=== PATIENT | female | born 1995 | race African-American/Black ===

== ENCOUNTER 2017-04-12 16:14 | Emergency (ER) | payer BC ==
[~2017-04-12] VITALS: Ht 167.6 cm; Wt 70.8 kg
[2017-04-12] MEDS ORDERED: ALBU83IN INH (16:23)
[2017-04-12] MEDS ORDERED: ONDANSETRON 4 MG ORAL DISINTEGRATING TAB (S0181) PO ONE (17:00)
[2017-04-12] MEDS ORDERED: ZOFR4TAB3 PO (18:16)
[2017-04-12 18:21] VITALS: BP 141/79
== END 2017-04-12 18:32 | disposition home or self-care (01) ==
LOC: M ED 17:10
DX: A08.4 Viral intestinal infection, unspecified (principal); R11.2 Nausea with vomiting, unspecified; F17.200 Nicotine dependence, unspecified, uncomplicated

== ENCOUNTER 2018-03-29 06:33 | Emergency (ER) | payer BC | END 2018-03-29 07:27 | disposition home or self-care (01) | LOC: M ED 06:33 | DX: J02.9 Acute pharyngitis, unspecified (principal); J45.909 Unspecified asthma, uncomplicated; F17.210 Nicotine dependence, cigarettes, uncomplicated | CPT/HCPCS: 87880 ==

== ENCOUNTER 2019-01-12 07:29 | Emergency (ER) | payer BC ==
[~2019-01-12] VITALS: Ht 167.6 cm; Wt 90.9 kg
[~2019-01-12 07:29] MED LIST: AFRI0.0511; ALBU83IN INH; AMOX875T PO; BENZ200C70 PO; ZOFR4TAB14 PO
[2019-01-12 07:30] VITALS: BP 129/70
--- NOTE | 2019-01-12 08:39 | REP ---
Right knee series: Five views. History: Trauma medially. Findings: Five views right knee show clothing artifact over the distal thigh. No fractures seen. No evidence of joint effusion. Impression: Negative right knee radiographs. Electronically Signed by Kevin Singer MD 01/12/2019 08:30 A
[2019-01-12] MEDS ORDERED: NAPR-885 PO (08:45)
== END 2019-01-12 08:55 | disposition home or self-care (01) ==
LOC: M ED 07:29
DX: S83.411A Sprain of medial collateral ligament of right knee, initial encounter (principal); X50.1XXA Overexertion from prolonged static or awkward postures, initial encounter; Y92.099 Unspecified place in other non-institutional residence as the place of occurrence of the external cause; Y93.9 Activity, unspecified; Y99.9 Unspecified external cause status; Z79.899 Other long term (current) drug therapy

== ENCOUNTER → 2019-11-01 | Outpatient (CLI) | payer BC ==
[~2019-11-01] MED LIST changes: +NAPR-885 PO; +PROHANCE 279.3MG/ML 15ML VIAL (A9576) As Ordered ONE; +PROHANCE 279.3MG/ML 5ML VIAL (A9576) As Ordered ONE
--- NOTE | 2019-11-01 16:24 | REPVR ---
PROCEDURE INFORMATION: Exam: MR Head Without and With Contrast; Internal Auditory Canals Exam date and time: 11/01/2019 3:14 PM Age: 23 years old Clinical indication: Other: Hearing loss; Additional info: Sens hearing loss TECHNIQUE: Imaging protocol: MR of the head without and with intravenous contrast. Exam focused on the internal auditory canals. 3D rendering: MIP and/or 3D reconstructed images were created by the technologist. Contrast material: PROHANCE; Contrast volume: 16 ml; Contrast route: IV; COMPARISON: No relevant prior studies available. FINDINGS: Brain: No lesions are seen in the seventh and eighth nerve complexes or within the cerebellopontine sulci, brainstem or posterior fossa.with gadolinium administration no enhancing schwannoma is seen in the seventh eighth nerve complexes nor throughout the brain parenchyma or leptomeninges. There is no acute cortical infarction, demyelinating lesions, intracranial hemorrhage or mass. Ventricles: No ventriculomegaly. Soft tissues: There is a rounded fat intensity lesion probably representing a lipoma since it is well-circumscribed in the subcutaneous soft tissues of the left face image 1 series 201, frame 3. There appear to be multiple lymph nodes within the posterior triangle series 201 image 1, frame 5,6,18,19. Sinuses: No air-fluid levels in the paranasal sinuses however there is diffuse mild mucoperiosteal thickening. Mastoid air cells: There is probable fluid in the right mastoid air cells. No fluid is seen in the middle ear cavities or left mastoid air cells. Internal auditory canals: Unremarkable. 7th and 8th cranial nerves are unremarkable. No abnormal masses. Orbits: Orbits are unremarkable. Bones/joints: Unremarkable. IMPRESSION: 1. No intracranial lesion is identified to explain the patient's sensorineural hearing loss. 2. Normal appearance of the brain. 3. Some fluid is seen in the right mastoid air cells. 4. There appears to be lymphadenopathy in the posterior triangle bilaterally only partially assessed on the survey images. Electronically signed by: Racquel Matt On 11/01/2019 16:23:58 PM
== END ==
LOC: M RAD 15:09
PROVIDERS: ATTEND Otolaryngology
DX: H90.41 Sensorineural hearing loss, unilateral, right ear, with unrestricted hearing on the contralateral side (principal); R59.0 Localized enlarged lymph nodes
CPT/HCPCS: 70553; A9576

== ENCOUNTER → 2020-11-21 | Outpatient (REF) | payer BC ==
[~2020-11-21] MED LIST changes: -PROHANCE 279.3MG/ML 15ML VIAL (A9576) As Ordered ONE; -PROHANCE 279.3MG/ML 5ML VIAL (A9576) As Ordered ONE
== END ==
LOC: M LAB REF 11:10
PROVIDERS: ATTEND Family Medicine Addiction Medicine
DX: R30.9 Painful micturition, unspecified (principal)

== ENCOUNTER 2022-03-14 23:03 | Emergency (ER) | payer BC ==
[2022-03-15] MEDS ORDERED: HOME MED LIST COMPLETE! XX SCH (00:25)
[2022-03-15 02:02] LABS: HEMOGLOBIN 14.1 g/dl (12.0-15.5); MEAN CORPUSCULAR HEMOGLOBIN 28.7 pg (27.0-33.0); MEAN CORPUSCULAR HGB CONC 32.8 g/dl (32.0-36.5); MEAN CORPUSCULAR VOLUME 87.4 fl (80.0-96.0); PLATELET COUNT, AUTOMATED 463 10^3/uL (150-450); RED BLOOD COUNT 4.92 10^6/uL (4.00-5.40); WHITE BLOOD COUNT 16.8 10^3/uL (4.0-10.0)
[2022-03-15] MEDS ORDERED: ALBU83IN INH (02:09)
[2022-03-15 02:25] LABS: HCG, SERUM QUALITATIVE NEGATIVE (NEGATIVE)
[2022-03-15 02:35] LABS: ACETAMINOPHEN LEVEL < 2.0 UG/ML (10.0-30.0); ALBUMIN 4.1 GM/DL (3.2-5.2); ALT/SGPT 53 U/L (12-78); BILIRUBIN,DIRECT < 0.1 MG/DL (0.0-0.2); BILIRUBIN,TOTAL 0.2 MG/DL (0.2-1.0); BLOOD UREA NITROGEN 10 MG/DL (7-18); CALCIUM LEVEL 8.8 MG/DL (8.5-10.1); CARBON DIOXIDE LEVEL 26 MEQ/L (21-32); CHLORIDE LEVEL 111 MEQ/L (98-107); CREATININE FOR GFR 0.82 MG/DL (0.55-1.30); ETHYL ALCOHOL (ETHANOL) 0.297 % (0.000-0.010); GLOMERULAR FILTRATION RATE > 60.0 (>60); GLUCOSE, FASTING 101 MG/DL (70-100); POTASSIUM SERUM 4.1 MEQ/L (3.5-5.1); SALICYLATE LEVEL < 1.7 MG/DL (5.0-30.0); SODIUM LEVEL 144 MEQ/L (136-145); THYROID STIMULATING HORMONE 0.854 uIU/ML (0.358-3.740); TOTAL PROTEIN 8.1 GM/DL (6.4-8.2)
[2022-03-15 02:44] LABS: AMPHETAMINES LEVEL URINE NEGATIVE (NEGATIVE); BARBITURATES URINE NEGATIVE (NEGATIVE); BENZODIAZEPINES URINE NEGATIVE (NEGATIVE); CANNABINOIDS URINE POSITIVE (NEGATIVE); COCAINE METABOLITE URINE NEGATIVE (NEGATIVE); METHADONE URINE NEGATIVE (NEGATIVE); OPIATES URINE NEGATIVE (NEGATIVE); PHENCYCLIDINE URINE NEGATIVE (NEGATIVE)
[2022-03-15] MEDS ORDERED: LORazepam 2 MG TAB PO STA (03:23)
[2022-03-15 04:29] LABS: RSV AMPLIFICATION NEGATIVE (NEGATIVE)
[2022-03-15 06:44] VITALS: BP 137/69
[2022-03-15] MEDS ORDERED: LORazepam 2 MG TAB PO PRN (08:10)
[2022-03-15] MEDS ORDERED: THIAMINE 100 MG TAB PO SCH (09:00)
[2022-03-15] MEDS ORDERED: MULTIVITAMINS/MINERALS THERAP 1 TAB PO SCH (09:00)
[2022-03-15] MEDS ORDERED: FOLIC ACID 1 MG TAB PO SCH (09:00)
== END 2022-03-15 21:24 | disposition home or self-care (01) ==
LOC: M ED 23:03
DX: F10.929 Alcohol use, unspecified with intoxication, unspecified (principal); R45.851 Suicidal ideations; J45.909 Unspecified asthma, uncomplicated; F17.200 Nicotine dependence, unspecified, uncomplicated; F12.10 Cannabis abuse, uncomplicated

== ENCOUNTER → 2022-11-03 | Outpatient (REF) | payer BC ==
[~2022-11-03] MED LIST changes: +ALBU2.5V10 INH; -ALBU83IN INH
== END ==
LOC: M LAB REF 16:11
PROVIDERS: ATTEND Physician Assistant
DX: Z02.1 Encounter for pre-employment examination (principal)

== ENCOUNTER → 2022-11-06 | Outpatient (CLI) | payer BC | LOC: M LAB 10:18 | PROVIDERS: ATTEND Pediatrics | DX: Z11.7 Encounter for testing for latent tuberculosis infection (principal) ==

== ENCOUNTER → 2022-11-10 | Outpatient (REF) | payer BC | LOC: M LAB REF 12:59 | PROVIDERS: ATTEND Nurse Practitioner Family | DX: Z02.1 Encounter for pre-employment examination (principal) ==

== ENCOUNTER 2023-10-19 02:08 | Emergency (ER) | payer BC ==
[~2023-10-19] VITALS: Ht 170.2 cm; Wt 86.6 kg
[2023-10-19 02:17] VITALS: TEMP 98.8
[2023-10-19 02:18] VITALS: BP 144/79
[2023-10-19 02:23] VITALS: O2SAT 97
== END 2023-10-19 03:38 | disposition left against medical advice (07) ==
LOC: M ED 02:08
DX: Z53.21 Procedure and treatment not carried out due to patient leaving prior to being seen by health care provider (principal)

== ENCOUNTER 2023-11-10 23:33 | Emergency (ER) | payer BC ==
[2023-11-10] MEDS ORDERED: HALOPERIDOL 5MG/ML 1ML VIAL IM ONE (23:40)
[2023-11-10] MEDS ORDERED: diphenhydrAMINE 50MG/ML VIAL IM ONE (23:40)
[2023-11-10] MEDS ORDERED: LORazepam 2 MG/ML 1ML VIAL IM ONE (23:40)
[2023-11-11] MEDS ORDERED: MED REC CURRENTLY UNOBTAINABLE XX SCH (01:10)
[2023-11-11 01:57] LABS: BARBITURATES URINE NEGATIVE (NEGATIVE); COCAINE METABOLITE URINE NEGATIVE (NEGATIVE); METHADONE URINE NEGATIVE (NEGATIVE); OPIATES URINE NEGATIVE (NEGATIVE); PHENCYCLIDINE URINE NEGATIVE (NEGATIVE)
[2023-11-11 01:58] LABS: HEMATOCRIT 39.9 % (36.0-47.0); HEMOGLOBIN 13.2 g/dl (12.0-15.5); MEAN CORPUSCULAR HEMOGLOBIN 29.3 pg (27.0-33.0); MEAN CORPUSCULAR HGB CONC 33.1 g/dl (32.0-36.5); MEAN CORPUSCULAR VOLUME 88.7 fl (80.0-96.0); PLATELET COUNT, AUTOMATED 389 10^3/uL (150-450); WHITE BLOOD COUNT 12.7 10^3/uL (4.0-10.0)
[2023-11-11 01:58] LABS: AMPHETAMINES LEVEL URINE NEGATIVE (NEGATIVE); BENZODIAZEPINES URINE NEGATIVE (NEGATIVE)
[2023-11-11 02:00] LABS: CANNABINOIDS URINE POSITIVE (NEGATIVE)
[2023-11-11 02:00] LABS: ETHYL ALCOHOL (ETHANOL) 0.248 % (0.000-0.010)
[2023-11-11 02:02] LABS: ALBUMIN 4.1 G/DL (3.2-5.2); ALKALINE PHOSPHATASE 73 U/L (46-116); ALT/SGPT 33 U/L (7.0-40); AST/SGOT 36 U/L (<34); BILIRUBIN,DIRECT < 0.1 MG/DL (<0.4); BILIRUBIN,TOTAL 0.2 MG/DL (0.3-1.2); BLOOD UREA NITROGEN 8 MG/DL (9-23); CALCIUM LEVEL 8.7 MG/DL (8.5-10.1); CARBON DIOXIDE LEVEL 24 MMOL/L (20-31); CHLORIDE LEVEL 110 MMOL/L (98-107); CREATININE FOR GFR 0.66 MG/DL (0.55-1.30); GLOMERULAR FILTRATION RATE > 60.0 (>60); GLUCOSE, FASTING 106 MG/DL (60-100); SALICYLATE LEVEL < 3.0 MG/DL (<30); SODIUM LEVEL 142 MMOL/L (136-145); TOTAL PROTEIN 7.3 G/DL (5.7-8.2)
[2023-11-11 02:04] LABS: THYROID STIMULATING HORMONE 1.062 uIU/ML (0.55-4.78)
[2023-11-11 02:05] LABS: CPK CREATINE PHOSPHOKINASE 380 U/L (34-145)
[2023-11-11 06:00] VITALS: TEMP 98.7
[2023-11-11 07:09] VITALS: BP 140/71; O2SAT 99
== END 2023-11-11 07:19 | disposition home or self-care (01) ==
LOC: EDBD 23:33 → M ED 23:33
DX: F10.159 Alcohol abuse with alcohol-induced psychotic disorder, unspecified (principal); Y90.8 Blood alcohol level of 240 mg/100 ml or more
CPT/HCPCS: 80048; 80076; 80143; 80307; 82077; 82550; 84443; 85027; 87635; 96372; 99285; J1200; J1630; J2060

== ENCOUNTER 2024-03-07 09:46 | Emergency (ER) | payer BC, OTHER ==
[~2024-03-07] VITALS: Ht 167.6 cm; Wt 87.6 kg
[2024-03-07] MEDS ORDERED: NALT50TA4 PO (09:58)
[2024-03-07] MEDS ORDERED: SERT200C PO (09:58)
[2024-03-07] MEDS ORDERED: BUPR75TA5 PO (09:58)
[2024-03-07 11:32] LABS: BASO % 0.6 % (0.0-1.0); EOS # 0.2 10^3/uL (0.0-0.5); EOS % 3.2 % (0.0-3.0); HEMATOCRIT 38.6 % (36.0-47.0); HEMOGLOBIN 12.7 g/dl (12.0-15.5); LYMPH # 2.3 10^3/uL (1.5-5.0); LYMPH % 32.3 % (24.0-44.0); MEAN CORPUSCULAR HEMOGLOBIN 29.1 pg (27.0-33.0); MEAN CORPUSCULAR HGB CONC 32.9 g/dl (32.0-36.5); MEAN CORPUSCULAR VOLUME 88.3 fl (80.0-96.0); MONO # 0.5 10^3/uL (0.0-0.8); MONO % 6.6 % (2.0-8.0); NEUTROPHILS % 56.7 % (36.0-66.0); PLATELET COUNT, AUTOMATED 341 10^3/uL (150-450); RED BLOOD COUNT 4.37 10^6/uL (4.00-5.40); WHITE BLOOD COUNT 7.1 10^3/uL (4.0-10.0)
[2024-03-07 11:44] LABS: INR 1.01
[2024-03-07 11:56] LABS: LIPASE 27 U/L (12-53)
[2024-03-07 11:57] LABS: C REACTIVE PROTEIN QUANTITATIV < 0.40 MG/DL (<1.0)
[2024-03-07 11:59] LABS: ALBUMIN 3.6 G/DL (3.2-5.2); ALKALINE PHOSPHATASE 68 U/L (46-116); ALT/SGPT 21 U/L (7.0-40); AST/SGOT 19 U/L (<34); BILIRUBIN,DIRECT < 0.1 MG/DL (<0.4); BILIRUBIN,TOTAL 0.3 MG/DL (0.3-1.2); BLOOD UREA NITROGEN 8 MG/DL (9-23); CALCIUM LEVEL 8.8 MG/DL (8.5-10.1); CARBON DIOXIDE LEVEL 27 MMOL/L (20-31); CHLORIDE LEVEL 106 MMOL/L (98-107); CREATININE FOR GFR 0.57 MG/DL (0.55-1.30); GLOMERULAR FILTRATION RATE > 60.0 (>60); GLUCOSE, FASTING 78 MG/DL (60-100); POTASSIUM SERUM 4.6 MMOL/L (3.5-5.1); SODIUM LEVEL 138 MMOL/L (136-145); TOTAL PROTEIN 6.8 G/DL (5.7-8.2)
[2024-03-07 13:16] VITALS: BP 139/91; TEMP 97.2; O2SAT 97
[2024-03-07] MEDS ORDERED: FLON1SPR NARES (13:42)
[2024-03-07] MEDS ORDERED: HOME MED LIST COMPLETE! XX SCH (13:45)
== END 2024-03-07 13:34 | disposition home or self-care (01) ==
LOC: M ED 09:46
DX: K92.2 Gastrointestinal hemorrhage, unspecified (principal); F17.200 Nicotine dependence, unspecified, uncomplicated; F12.10 Cannabis abuse, uncomplicated; F10.10 Alcohol abuse, uncomplicated; Z79.51 Long term (current) use of inhaled steroids; Z79.891 Long term (current) use of opiate analgesic; Z79.899 Other long term (current) drug therapy

== ENCOUNTER → 2024-03-15 | Outpatient (REF) | payer OTHER ==
[~2024-03-15] MED LIST changes: +BUPR75TA5 PO; +FLON1SPR NARES; +NALT50TA4 PO; +SERT200C PO
[2024-03-15 14:33] LABS: IMMUNOGLOBULIN A 324.1 MG/DL (40-350)
[2024-03-15 14:37] LABS: TOTAL 25(OH) VITAMIN D 16.4 NG/ML (20.0-100.0)
== END ==
LOC: M LAB REF 12:29
PROVIDERS: ATTEND Nurse Practitioner Family
DX: R14.0 Abdominal distension (gaseous) (principal); E55.9 Vitamin D deficiency, unspecified

== ENCOUNTER → 2025-02-26 | Outpatient (CLI) | payer OTHER ==
[2025-02-26 15:41] LABS: FOLLICLE STIMULATING HORMONE 2.8 mIU/ML; FREE T4 0.88 NG/DL (0.89-1.76); LUTEINIZING HORMONE 3.6 mIU/ML; PROGESTERONE 4.65 NG/ML
[2025-02-26 15:42] LABS: PROLACTIN 6.15 NG/ML; THYROID STIMULATING HORMONE 0.789 uIU/ML (0.55-4.78)
== END ==
LOC: M PLALAB 12:53
PROVIDERS: ATTEND Specialist
DX: N92.6 Irregular menstruation, unspecified (principal)

== ENCOUNTER → 2025-08-19 | Outpatient (REF) | payer MEDICAID, OTHER ==
[2025-08-19 15:04] LABS: BASO # 0.1 10^3/uL (0.0-0.2); BASO % 0.5 % (0.0-1.0); EOS # 0.3 10^3/uL (0.0-0.5); EOS % 2.3 % (0.0-3.0); LYMPH # 2.3 10^3/uL (1.5-5.0); LYMPH % 20.8 % (24.0-44.0); MONO # 0.8 10^3/uL (0.0-0.8); MONO % 7.7 % (2.0-8.0); NEUTROPHILS # 7.4 10^3/uL (1.5-8.5); NEUTROPHILS % 67.8 % (36.0-66.0); PLATELET COUNT, AUTOMATED 420 10^3/uL (150-450)
[2025-08-19 15:07] LABS: CALCIUM LEVEL 9.1 MG/DL (8.5-10.1); CARBON DIOXIDE LEVEL 28 MMOL/L (20-31); CHLORIDE LEVEL 105 MMOL/L (98-107); CHOLESTEROL LEVEL 194 MG/DL (<200); CHOLESTEROL RISK RATIO 4.27 (<5); CREATININE FOR GFR 0.69 MG/DL (0.55-1.30); GLOMERULAR FILTRATION RATE > 90.0 (>60); LDL CHOLESTEROL 122.4 MG/DL (<100); NON-HDL-C 148.6 MG/DL; POTASSIUM SERUM 4.3 MMOL/L (3.5-5.1); SODIUM LEVEL 142 MMOL/L (136-145); TRIGLYCERIDES LEVEL 131 MG/DL (<150)
[2025-08-19 15:25] LABS: ESTIMATED AVERAGE GLUCOSE 111.0 MG/DL (60-110)
== END ==
LOC: M LAB REF 14:31
PROVIDERS: ATTEND Nurse Practitioner Family
DX: K62.5 Hemorrhage of anus and rectum (principal); E66.9 Obesity, unspecified

== ENCOUNTER 2025-09-05 11:10 | Emergency (ER) | payer OTHER ==
[~2025-09-05] VITALS: Ht 167.6 cm; Wt 92.0 kg
[~2025-09-05 11:10] MED LIST changes: +BUPR-363 PO; -BUPR75TA5 PO
[2025-09-05] MEDS ORDERED: BUPR150T12 (11:49)
[2025-09-05 14:09] VITALS: BP 136/65; TEMP 97.9; O2SAT 98
== END 2025-09-05 14:10 | disposition home or self-care (01) ==
LOC: M ED 11:10
DX: S60.221A Contusion of right hand, initial encounter (principal); W22.09XA Striking against other stationary object, initial encounter; F41.9 Anxiety disorder, unspecified; F32.A Depression, unspecified; Y92.9 Unspecified place or not applicable; Y93.89 Activity, other specified; Y99.9 Unspecified external cause status; Z79.899 Other long term (current) drug therapy